=== PATIENT | male | born 1975 | race African-American/Black ===

== ENCOUNTER 2017-04-30 19:36 | Emergency (ER) | payer BC ==
[2017-04-30] MEDS ORDERED: Dexamethasone 10 MG/ML VIAL ONE (22:14)
== END 2017-04-30 22:43 | disposition home or self-care (01) ==
LOC: ERS 19:36
DX: L23.7 Allergic contact dermatitis due to plants, except food (principal); Z87.891 Personal history of nicotine dependence
CPT/HCPCS: 96372; J1100

== ENCOUNTER 2020-06-15 16:31 | Emergency (ER) | payer BC ==
--- NOTE | 2020-06-15 19:09 | RAD ---
RIGT HAND THREE VIEWS: History: Injury, right middle finger swelling, prior laceration. FINDINGS: Soft tissue swelling of the middle finger. No acute fracture or dislocation. No evidence for overt fo reign body. IMPRESSION: Soft tissue swelling middle finger without fracture or dislocation or overt foreign body. POS: RRE
== END 2020-06-15 18:06 | disposition home or self-care (01) ==
LOC: ERS 16:31
DX: L03.011 Cellulitis of right finger (principal); Z87.891 Personal history of nicotine dependence

== ENCOUNTER 2020-11-15 19:35 | Inpatient (IN) | payer BC ==
[2020-11-15 20:55] LABS: #Basophils 0.1 thou/uL (0.0-0.2); #Lymphocytes 1.2 thou/uL (1.20-3.40); #Monocytes 0.9 thou/uL (0.11-0.59); #Neutrophils 4.2 thou/uL (1.40-6.50); %Basophils 0.8 % (0.0-1.0); %Eosinophils 0.5 % (0.0-10.0); %Lymphocytes 18.7 % (21.0-51.0); %Monocytes 14.2 % (0.0-10.0); %Neutrophils 65.7 % (42.0-75.0); Mean Corpuscular HGB CONC 33.6 g/dL (32.0-36.0); Mean Corpuscular Volume 86.4 fL (78.0-98.0); Mean Platelet Volume 6.9 fL (7.4-10.4); Platelet Count 212 thou/uL (130-400); Red Blood Cell (RBC) Count 4.82 mill/uL (4.70-6.10); White Blood Cell (WBC) Count 6.5 thou/uL (4.8-10.8)
[2020-11-15 21:09] LABS: ALT (SGPT) 62 U/L (8-55); AST (SGOT) 49 U/L (5-34); Albumin 3.8 g/dL (3.5-5.0); Alkaline Phosphatase 99 U/L (40-110); Anion Gap 16 mmol/L (10-20); BUN (Urea Nitrogen) 12 mg/dL (8.9-20.6); Bilirubin, Total 0.5 mg/dL (0.2-1.2); Calc. Creatinine Clearance 0 mL/min (70-130); Carbon Dioxide 21 mmol/L (22-29); Chloride 104 mmol/L (98-107); Globulin 3.2 g/dL (2.4-3.5); Glucose 100 mg/dL (70-105); Potassium 3.7 mmol/L (3.5-5.1); Sodium 137 mmol/L (136-145)
[2020-11-15] MEDS ORDERED: diphenhydrAMINE 50 MG/ML VIAL ONE (21:20)
[2020-11-15] MEDS ORDERED: Metoclopramide HCl 10 MG/2 ML VIAL ONE (21:20)
[2020-11-15] MEDS ORDERED: Acetaminophen 500 MG TAB ONE (21:20)
[2020-11-15] MEDS ORDERED: cefTRIAXone\\ROCEPHIN 2 GM VIAL ONE (23:12)
[2020-11-15] MEDS ORDERED: Vancomycin 1 GM/200 ML BAG ONE (23:12)
[2020-11-16] MEDS ORDERED: Guaifenesin DM 100-10/5 ML UDCUP PO PRN (00:09)
[2020-11-16] MEDS ORDERED: HYDROcodone/Acetaminophen 10/325 mg Tablet PO PRN (00:09)
[2020-11-16] MEDS ORDERED: Bisacodyl 5 MG TAB PO PRN (00:09)
[2020-11-16] MEDS ORDERED: Ondansetron PF 4 MG/2 ML Vial IVP PRN (00:09)
[2020-11-16] MEDS ORDERED: Morphine 2 MG/ML VIAL SLOW IVP PRN (00:13)
[2020-11-16] MEDS ORDERED: hydrALAZINE 20 MG/ML VIAL SLOW IVP PRN (00:13)
[2020-11-16] MEDS ORDERED: Vancomycin 1 GM in Premix Bag 1 BAG IVPB SCH (00:15)
[2020-11-16] MEDS: cefTRIAXone\\ROCEPHIN 2 GM in Sodium Chloride 0.9% 100 ML IVPB SCH (00:53)
[2020-11-16] MEDS: Sodium Chloride 0.9% 1,000 ML IV SCH ×3 (00:53→21:50)
[2020-11-16 00:55] VITALS: BMI 28.9
[2020-11-16] MEDS: Vancomycin 1.5 GRAM/300 ML BAG 1.5 GM in Premix Bag 1 BAG IVPB SCH ×3 (03:32→21:50)
[2020-11-16 03:36] LABS: SARS-CoV-2 NAA Rapid Test Not Detected (NotDetected)
[2020-11-16 03:46] LABS: Bilirubin Negative (Negative); Blood, Urine Negative (Negative); Glucose, Urine (Dipstick) Negative (Negative); Ketone, Urine Trace mg/dL (Negative); Leukocyte Negative (Negative); Nitrite Negative (Negative); Protein, Urine (Dipstick) Negative (Neg-Trace); Specific Gravity, Urine 1.025 (1.005-1.030); Urobilinogen 0.2 mg/dL (Less than 2)
[2020-11-16 03:49] LABS: Clarity Clear (Clear)
[2020-11-16 03:50] LABS: Urine Culture Reflex No No
[2020-11-16 04:02] LABS: Bacteria/HPF 1+ HPF (None Seen); RBC/HPF 0-3 HPF (0-3); Squamous Epithelial None Seen HPF (0-3); WBC/HPF 0-3 HPF (0-3)
[2020-11-16 06:23] LABS: Hemoglobin 13.4 g/dL (14.0-18.0); Mean Corpuscular HGB CONC 31.6 g/dL (32.0-36.0); Mean Corpuscular Hemoglobin 27.7 pg (27.0-31.0); Mean Corpuscular Volume 87.6 fL (78.0-98.0); Mean Platelet Volume 6.7 fL (7.4-10.4); Platelet Count 220 thou/uL (130-400); RBC Distribution Width 11.9 % (11.5-14.5); Red Blood Cell (RBC) Count 4.82 mill/uL (4.70-6.10); White Blood Cell (WBC) Count 6.6 thou/uL (4.8-10.8)
[2020-11-16 06:36] LABS: ALT (SGPT) 56 U/L (8-55); AST (SGOT) 40 U/L (5-34); Albumin 3.6 g/dL (3.5-5.0); Alkaline Phosphatase 90 U/L (40-110); Anion Gap 14 mmol/L (10-20); BUN (Urea Nitrogen) 11 mg/dL (8.9-20.6); Bilirubin, Total 0.4 mg/dL (0.2-1.2); Calc. Creatinine Clearance 142 mL/min (70-130); Calcium 8.5 mg/dL (7.8-10.44); Carbon Dioxide 25 mmol/L (22-29); Chloride 104 mmol/L (98-107); Globulin 3.4 g/dL (2.4-3.5); Glucose 96 mg/dL (70-105); Potassium 3.7 mmol/L (3.5-5.1); Sodium 139 mmol/L (136-145)
[2020-11-16 06:51] LABS: Band 12 % (5-11); Eosinophils 1 % (0-10); Lymphocytes 28 % (21-51); MDiff Complete? YES; Monocytes 20 % (0-10); Neutrophil 39 % (42-75)
[2020-11-16] MEDS: Acetaminophen 325 MG TAB PO PRN (08:22)
[2020-11-16] MEDS: Enoxaparin Sodium 40 MG/0.4 ML SYRINGE SC SCH (08:22)
[2020-11-16] MEDS: Famotidine 20 MG TAB PO SCH ×2 (08:22→21:50)
[2020-11-16] MEDS: Zinc Sulfate 220 MG CAP PO SCH (08:22)
[2020-11-16 11:45] LABS: CSF Source CSF; Clarity Clear (Clear); Tube # 4
[2020-11-16 11:48] LABS: CSF, Glucose 66 mg/dl (40-70); CSF, Protein 22 mg/dL (15-40)
[2020-11-16 12:11] LABS: Unspun CSF Color COLORLESS (Colorless)
[2020-11-16 12:12] LABS: Color Of CSF Supernatant COLORLESS (Colorless); Tube # 1
[2020-11-16] MEDS ORDERED: Metoclopramide HCl 10 MG/2 ML VIAL IVP SCH (13:30)
[2020-11-16] MEDS ORDERED: Fentanyl 100 MCG/2 ML VIAL SLOW IVP SCH (13:30)
[2020-11-16] MEDS ORDERED: diphenhydrAMINE 50 MG/ML VIAL IVP SCH (13:30)
[2020-11-16 16:09] LABS: ANA Symphony (Qualitative) Negative (Negative); ANA Symphony (Quantitative) 0.2 Ratio (< 0.7 Negative); dsDNA IgG Antibody Less than 0.5 IU/mL (<10 Negative)
[2020-11-16] MEDS: Fioricet 325/50/40 mg Tablet PO PRN (18:28)
[2020-11-17] MEDS: cefTRIAXone\\ROCEPHIN 2 GM in Sodium Chloride 0.9% 100 ML IVPB SCH (01:25)
[2020-11-17] MEDS: Fioricet 325/50/40 mg Tablet PO PRN ×2 (04:08→15:34)
[2020-11-17 04:40] LABS: Vancomycin, Trough 17.9 ug/mL
[2020-11-17] MEDS: Vancomycin 1.5 GRAM/300 ML BAG 1.5 GM in Premix Bag 1 BAG IVPB SCH ×3 (05:15→21:48)
[2020-11-17] MEDS: Famotidine 20 MG TAB PO SCH ×2 (08:15→21:48)
[2020-11-17] MEDS: Zinc Sulfate 220 MG CAP PO SCH (08:15)
[2020-11-17] MEDS: Sodium Chloride 0.9% 1,000 ML IV SCH ×2 (08:16→15:35)
[2020-11-17] MEDS: Enoxaparin Sodium 40 MG/0.4 ML SYRINGE SC SCH (08:16)
[2020-11-17] MEDS: Acetaminophen 325 MG TAB PO PRN (14:22)
[2020-11-18] MEDS: cefTRIAXone\\ROCEPHIN 2 GM in Sodium Chloride 0.9% 100 ML IVPB SCH (01:14)
[2020-11-18] MEDS: Sodium Chloride 0.9% 1,000 ML IV SCH (02:15)
[2020-11-18 03:42] LABS: Vancomycin, Trough 25.8 ug/mL
[2020-11-18] MEDS: Vancomycin 1.5 GRAM/300 ML BAG 1.5 GM in Premix Bag 1 BAG IVPB SCH (04:08)
[2020-11-18 07:25] VITALS: TEMP 98.5
[2020-11-18] MEDS: Famotidine 20 MG TAB PO SCH (08:19)
[2020-11-18] MEDS: Fioricet 325/50/40 mg Tablet PO PRN (08:19)
[2020-11-18] MEDS: Zinc Sulfate 220 MG CAP PO SCH (08:19)
[2020-11-18] MEDS: Enoxaparin Sodium 40 MG/0.4 ML SYRINGE SC SCH (08:19)
[2020-11-18 09:03] VITALS: BP 136/88
== END 2020-11-18 11:33 | disposition home or self-care (01) | DRG 866 ==
LOC: ERS 19:35 → T4-A 23:22 → OBSVTOIN 11-16 13:43
PROVIDERS: ADMIT Internal Medicine; ATTEND Internal Medicine
PROC: 009U3ZX Drainage of Spinal Canal, Percutaneous Approach, Diagnostic (ICD-10-PCS; principal; 2020-11-16)
PROC: B01BZZZ Fluoroscopy of Spinal Cord (ICD-10-PCS; 2020-11-16)
PROC: 00JU3ZZ Inspection of Spinal Canal, Percutaneous Approach (ICD-10-PCS; 2020-11-16)
DX: B34.9 Viral infection, unspecified (principal); Z20.822 Contact with and (suspected) exposure to COVID-19; Z88.6 Allergy status to analgesic agent; Z87.891 Personal history of nicotine dependence
CPT/HCPCS: 36415; 62270; 70450; 71045; 71250; 80053; 80202; 81001; 82945; 84157; 85007; 85025; 85027; 85652; 86038; 86141; 86225; 87040; 87070; 87086; 87205; 89051; 96365; 96366; 96367; 96375; 96376; G0378; J0696; J1200; J2765; J3010; J3370; J3490; U0002; U0005

== ENCOUNTER 2023-07-12 16:08 | Outpatient (CLI) | payer BC | END 2023-07-12 16:09 | disposition home or self-care (01) | LOC: BICRAD 16:08 | PROVIDERS: ATTEND Student in an Organized Health Care Education/Training Program | DX: M79.644 Pain in right finger(s) (principal) ==